=== PATIENT | male | born 1980 | race Caucasian/White ===

== ENCOUNTER 2022-03-05 06:26 | Emergency (ER) | payer SELFPAY ==
[~2022-03-05] VITALS: Ht 177.8 cm; Wt 86.4 kg
[2022-03-05 06:30] VITALS: TEMP 98.5
[2022-03-05 06:48] LABS: BASO % 0.3 % (0.0-2.0); EOS # 0.2 K/mm3 (0.0-0.7); EOS % 1.9 % (0.0-4.0); GRAN # 8.2 K/mm3 (1.4-6.5); GRAN % 79.3 % (42.2-75.2); HEMOGLOBIN 12.3 g/dl (13.5-18.0); LYMPH # 1.1 K/mm3 (1.2-3.4); LYMPH % 10.3 % (20.0-51.0); MEAN CELL VOLUME 88 fl (80.0-100.0); MEAN CORPUSCULAR HEMOGLOBIN 30 pg (27-31); MEAN CORPUSCULAR HGB CONC 34 g/dl (33.0-37.0); MONO # 0.8 K/mm3 (0.1-0.6); MONO % 7.8 % (1.7-9.3); PLATELET COUNT 203 K/mm3 (130-400); RED BLOOD COUNT 4.09 M/mm3 (4.20-5.60); REDCELL DISTRIBUTION WIDTH-CV 12.9 % (11.5-14.5)
[2022-03-05 06:49] LABS: HEMATOCRIT 35.8 % (42.0-52.0)
[2022-03-05 07:07] LABS: ALANINE AMINOTRANSFERASE 98 U/L (0-55); ALBUMIN 3.9 gm/dL (3.5-5.0); ALKALINE PHOSPHATASE 52 U/L (40-150); ANION GAP 13 mmol/L (7-16); AST,SGOT 110 U/L (5-34); BILIRUBIN,TOTAL 0.4 mg/dL (0.2-1.2); BLOOD UREA NITROGEN 12 mg/dL (9-21); CALCIUM 8.9 mg/dL (8.4-10.2); CARBON DIOXIDE 21 mmol/L (22-29); CHLORIDE 111 mmol/L (98-107); CREATININE, serum 1.04 mg/dL (0.72-1.25); GLUCOSE 140 mg/dL (70-99); POTASSIUM 3.2 mmol/L (3.5-4.5); SODIUM 145 mmol/L (136-145); TOTAL PROTEIN 6.2 gm/dL (6.2-8.1)
[2022-03-05 07:21] LABS: ALCOHOL(ethanol),MEDICAL < 10 mg/dL (0-10)
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
[2022-03-05] MEDS ORDERED: PERCOCET 325 MG1 TA2 PO ×5 (15:10→17:19)
[2022-03-05] MEDS ORDERED: CLEOCIN HC150 MG/CAP PO ×3 (15:44→17:19)
--- NOTE | 2022-03-05 16:46 | NUR ---
KATE contacted by House Nurse stating that patient was still in ED. KATE followed up with patient's friend Dayanna who stated she would be arriving to pick patient up. When called Dayanna stated that she was attempting to get her car fixed and would arrive when she could. KATE confirmed that when she arrived patient could go with Dayanna, Dayanna stated yes and SW provided that the facility would be able to provide him with transportation to her location. Dayanna stated that she would call KATE back to provide more information. Dayanna called SW back and stated that she has found a ride to come and excelsior picker patient from the ED department within the next 2 hours. House Nurse informed of information. Nothing further.
[2022-03-05 16:50] VITALS: BP 137/78; PULSE 70
== END 2022-03-05 16:50 | disposition home or self-care (01) ==
LOC: COL.ER 06:26
PROVIDERS: Emergency Medicine
DX: S01.111A Laceration without foreign body of right eyelid and periocular area, initial encounter (principal); S81.812A Laceration without foreign body, left lower leg, initial encounter; S20.311A Abrasion of right front wall of thorax, initial encounter; S50.11XA Contusion of right forearm, initial encounter; S80.02XA Contusion of left knee, initial encounter; F17.210 Nicotine dependence, cigarettes, uncomplicated; Z28.310 Unvaccinated for COVID-19; Z23 Encounter for immunization; Y00.XXXA Assault by blunt object, initial encounter
CPT/HCPCS: J0690; J2405; J3010; J7030; Q9967